=== PATIENT | female | born 1985 | race Caucasian/White ===

== ENCOUNTER 2018-04-24 11:19 | Emergency (ER) | payer SELFPAY ==
[2018-04-24 11:27] VITALS: BP 131/63
--- NOTE | 2018-04-24 11:55 | Emergency Department Report ---
ED Allergic Reaction HPI - General Chief complaint: Allergic Reaction Stated complaint: ALLERGIC REACTION Time Seen by Provider: 04/24/18 11:44 Source: patient Mode of arrival: Ambulatory Limitations: No Limitations - History of Present Illness Initial Comments: Patient is 33 years old female with no significant past medical history. Patient presented to the ER complaining of off itching and facial swelling started 2 days ago after she was working in her backyard. Patient stated that she was sweating and she wiped her face with her shirt and possibilities of poison ssuie involved. Patient denied any shortness of breath, some difficulty swallowing or difficulty speaking. MD Complaint: allergic reaction, hives, facial swelling - Related Data Allergies Allergy/AdvReac Type Severity Reaction Status Date / Time cefprozil [From Cefzil] Allergy Rash Verified 04/24/18 11:23 ED Review of Systems ROS: Stated complaint: ALLERGIC REACTION Other details as noted in HPI Comment: All other systems reviewed and negative Constitutional: denies: weakness Eyes: denies: eye discharge, vision change ENT: denies: throat pain Respiratory: denies: cough, orthopnea, shortness of breath, SOB with exertion, wheezing Cardiovascular: denies: chest pain, palpitations, dyspnea on exertion Gastrointestinal: denies: abdominal pain, nausea, vomiting, diarrhea, constipation, hematemesis, melena, hematochezia Musculoskeletal: denies: back pain, joint swelling, arthralgia, myalgia Neurological: denies: headache, weakness, numbness, paresthesias, confusion, abnormal gait, vertigo ED Past Medical Hx - Past Medical History Previous Medical History?: Yes Additional medical history: childbirth x 3 - Surgical History Past Surgical History?: Yes Additional Surgical History: x 3, Tubaligation - Social History Smoking Status: Never Smoker Substance Use Type: Alcohol ED Physical Exam - General Limitations: No Limitations General appearance: alert, in no apparent distress - Head Head exam: Present: atraumatic, normocephalic, normal inspection - Eye Eye exam: Present: PERRL, periorbital swelling - ENT ENT exam: Present: normal exam, normal orophraynx, mucous membranes moist - Respiratory Respiratory exam: Present: normal lung sounds bilaterally. Absent: respiratory distress, wheezes, rales, rhonchi, stridor, chest wall tenderness, accessory muscle use, decreased breath sounds, prolonged expiratory - Cardiovascular Cardiovascular Exam: Present: regular rate, normal rhythm, normal heart sounds - GI/Abdominal GI/Abdominal exam: Present: soft, normal bowel sounds. Absent: distended, tenderness, guarding, rebound, rigid - Extremities Exam Extremities exam: Present: normal inspection, full ROM, normal capillary refill - Neurological Exam Neurological exam: Present: alert, oriented X3, CN II-XII intact, normal gait - Skin Skin exam: Present: warm, rash, urticaria ED Course Vital Signs 04/24/18 04/24/18 11:23 11:35 Temperature 97.6 F Pulse Rate 58 L Respiratory 22 22 Rate Blood Pressure 131/63 O2 Sat by Pulse 97 97 Oximetry Critical care attestation.: If time is entered above; I have spent that time in minutes in the direct care of this critically ill patient, excluding procedure time. ED Disposition Clinical Impression: Allergic reaction, Poison susie dermatitis Disposition: DC-01 TO HOME OR SELFCARE Is pt being admited?: No Condition: Stable Instructions: Poison Susie (ED) Referrals: PRIMARY CARE, [Primary Care Provider] - 3-5 Days
== END 2018-04-24 12:02 | disposition home or self-care (01) ==
LOC: ED 11:19
DX: L23.7 Allergic contact dermatitis due to plants, except food (principal); Z98.51 Tubal ligation status; Z88.8 Allergy status to other drugs, medicaments and biological substances
CPT/HCPCS: 96372; 99282; J2930

== ENCOUNTER 2018-05-01 13:20 | Emergency (ER) | payer OTHER ==
[2018-05-01 13:49] VITALS: BP 113/70
--- NOTE | 2018-05-01 15:09 | Emergency Department Report ---
ED Rash HPI - HPI Chief Complaint: Skin Rash Stated Complaint: ALLERGIC REACTION Time Seen by Provider: 05/01/18 15:01 Duration: approximately one week Location: Other (patient has a urticarial rash on all parts of her body that she can reach. The only place where she does not have rash involvement is on her back) Suspected Cause: Other (patient was seen here approximately a week ago. She was in her yard and that she may have come in contact with some poison juhi or poison oak. Patient initially had symptoms only on the face. Patient states her rash on her face is improved however her rash Geronimo about a has progress. Patient was on a Medrol Dosepak previous to arrival but this is now gone) Rash Symptoms: Yes Itching, No Facial Swelling, No Tongue/Oral Swelling, No Breathing Difficulties, No Choking Sensation, No Wheezing/Dyspnea, No Peeling, No Blistering, No Fever, No Lightheaded, No Malaise, No Myalgias Severity: severe ED Review of Systems ROS: Stated complaint: ALLERGIC REACTION Other details as noted in HPI Comment: All other systems reviewed and negative ED Past Medical Hx - Past Medical History Previous Medical History?: No Hx Hypertension: No Hx CVA: No Hx Heart Attack/AMI: No Hx Congestive Heart Failure: No Hx Diabetes: No Hx Deep Vein Thrombosis: No Hx Pulmonary Embolism: No Hx GERD: No Hx Liver Disease: No Hx Renal Disease: No Hx of Cancer: No Hx Sickle Cell Disease: No Hx Arthritis: No Hx Headaches / Migraines: No Hx Seizures: No Hx Kidney Stones: No Hx Psychiatric Treatment: No Hx Asthma: No Hx COPD: No Hx Tuberculosis: No Hx Dementia: No Hx HIV: No Additional medical history: childbirth x 3 - Surgical History Past Surgical History?: No Hx Coronary Stent: No Hx Open Heart Surgery: No Hx Pacemaker: No Hx Internal Defibrillator: No Hx Cholecystectomy: No Hx Appendectomy: No Hx Breast Surgery: No Additional Surgical History: x 3, Tubaligation - Social History Smoking Status: Never Smoker Substance Use Type: None - Medications Home Medications: Home Medications Medication Instructions Recorded Confirmed Last Taken Type Prednisone [predniSONE 10 mg 10 mg PO .TAPER #1 tab.ds.pk 04/24/18 Unknown Rx (6-Day Pack, 21 Tabs)] Triamcinolone 0.1% [Kenalog 0.1% 1 applic TP TID #60 gm 05/01/18 Unknown Rx CREAM] hydrOXYzine HCL [Atarax] 25 mg PO Q6HR PRN #20 tablet 05/01/18 Unknown Rx predniSONE [Deltasone] 20 mg PO QDAY #5 tab 05/01/18 Unknown Rx Rash Exam - Exam General: Vital signs noted. No distress. Alert and acting appropriately. HEENT: No Periorbital Edema, No Conjuctival Injection, No Chemosis, No Perioral Edema, No Tongue Edema, No Uvular Edema, No Compromised Airway, No Drooling Lungs: Yes Good Air Exchange (Normal Breath Sounds), No Wheezes, No Ronchi, No Stridor, No Cough, No Labored Respirations, No Retractions, No Use of Accessory Muscles, No Other Abnormal Lung Sounds Heart: Yes Regular, No Murmur Skin: Yes Urticarial Rash Other: Positive: Abdomen Normal, Neurologic Normal, Musculoskeletal Normal ED Course Vital Signs 05/01/18 13:41 Temperature 98.1 F Pulse Rate 101 H Respiratory 20 Rate Blood Pressure 113/70 Blood Pressure 113/70 [Right] O2 Sat by Pulse 98 Oximetry Critical care attestation.: If time is entered above; I have spent that time in minutes in the direct care of this critically ill patient, excluding procedure time. ED Disposition Clinical Impression: Poison juhi dermatitis, Allergic urticaria Disposition: DC-01 TO HOME OR SELFCARE Is pt being admited?: No Does the pt Need Aspirin: No Condition: Stable Instructions: Urticaria (ED) Prescriptions: hydrOXYzine HCL [Atarax] 25 mg PO Q6HR PRN #20 tablet PRN Reason: Itching predniSONE [Deltasone] 20 mg PO QDAY #5 tab Triamcinolone 0.1% [Kenalog 0.1% CREAM] 1 applic TP TID #60 gm
[2018-05-01] MEDS ORDERED: DECADRON IM ONE (15:11)
[2018-05-01] MEDS ORDERED: ATARAX PO ONE (16:00)
== END 2018-05-01 15:34 | disposition home or self-care (01) ==
LOC: ED 13:20
DX: L50.0 Allergic urticaria (principal)
CPT/HCPCS: 96372; 99282; J1100